=== PATIENT | female | born 1980 | race Two or more races ===

== ENCOUNTER 2019-03-18 02:31 | Emergency (ER) | payer SELFPAY ==
[~2019-03-18] VITALS: Ht 162.6 cm; Wt 58.1 kg
[2019-03-18] MEDS ORDERED: IBUPROFEN 400 MG TABLET ONE (02:37)
--- NOTE | 2019-03-18 02:39 | NUR ---
KATELYNN. TO ER BED 11. AAOX4. NO RESP DISRTRESS NOTED. AAOX4. SMELLS OF ALCOHOL. AMBULATORY. C/O L HAND PAIN & L SHOULDER S/P FALLS/ PT REPORTS HER PAIN 9/10. PT REPORTS THAT HER L HAND DIGIT 1,2&3 HAS A TINGLING AND DIMINISHED SENSATION AND UNABLE TO MOVE COMPARE TO DIGIT 4 & 5. PT REPORTS THAT SHE BROKE HER FALL USING HER L HAND. MD AT BEDSIDE FOR EVAL. ORDERS RECEIVED, NOTED AND CARRIED OUT
--- NOTE | 2019-03-18 02:45 | NUR ---
XRAY DONE AT BEDSIDE
[2019-03-18] MEDS ORDERED: IBUPROFEN 400 MG TABLET PO ONE (03:00)
--- NOTE | 2019-03-18 03:33 | NUR ---
Patient discharged to home in stable condition. Written and verbal after care instructions given. Patient verbalizes understanding of instruction.Pt ambulatory with a steady gait
[2019-03-18 03:37] VITALS: BP 11/76
== END 2019-03-18 03:37 | disposition home or self-care (01) ==
LOC: ER 02:31
DX: S63.8X2A Sprain of other part of left wrist and hand, initial encounter (principal); N15.9 Renal tubulo-interstitial disease, unspecified; Z88.6 Allergy status to analgesic agent; W18.39XA Other fall on same level, initial encounter; Y93.89 Activity, other specified; Y92.89 Other specified places as the place of occurrence of the external cause; Y99.0 Civilian activity done for income or pay
CPT/HCPCS: 73110; 73130-TC